=== PATIENT | male | born 1990 | race Caucasian/White ===

== ENCOUNTER 2016-10-26 14:00 | Emergency (ER) | payer OTHER ==
[~2016-10-26] VITALS: Ht 182.9 cm; Wt 68.0 kg
[~2016-10-26 14:00] MED LIST: DARVOCET-N 1001 EACH PO; KEFLEX 500MG.500 MG PO
[2016-10-26 14:31] LABS: HEMOGLOBIN 15.5 g/dL (14.1-18.0)
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
[2016-10-26 15:21] LABS: AMPHETAMINES/METAMPHETAMINES NEGATIVE ng/mL (<1000)
[2016-10-26 17:20] VITALS: BP 131/66
== END 2016-10-26 17:21 | disposition home or self-care (01) ==
LOC: ER 14:00
PROVIDERS: Emergency Medicine
DX: T59.811A Toxic effect of smoke, accidental (unintentional), initial encounter (principal); J70.5 Respiratory conditions due to smoke inhalation; Y92.71 Barn as the place of occurrence of the external cause